=== PATIENT | male | born 1980 | race Caucasian/White ===

== ENCOUNTER 2021-12-06 10:50 | Emergency (ER) | payer BC ==
[~2021-12-06] VITALS: Ht 175.3 cm; Wt 102.7 kg
[2021-12-06 11:05] VITALS: BP 182/118
[2021-12-06] MEDS ORDERED: DIPHTH,PERTUSS(ACELL),TET TOX 0.5 ML DISP.SYRIN. VAX IM ONE (11:45)
[2021-12-06] MEDS ORDERED: LIDOCAINE 1%/EPI 1:100,000 20 ML VIAL. INJ ONE (11:45)
[2021-12-06] MEDS ORDERED: CEPHALEXIN 250 MG CAPSULE. PO SCH (12:00)
--- NOTE | 2021-12-06 12:33 | RAD ---
EXAM: XR HAND_LEFT 2 VIEWS 12/06/2021 11:44 AM CLINICAL INDICATION: Laceration on hand COMPARISON: None TECHNIQUE: PA and lateral views of the left hand FINDINGS: There is no acute fracture. Alignment is normal. Joint spaces are maintained. No focal sof t tissue abnormality or radiopaque foreign body. IMPRESSION: No acute osseous abnormality or radiopaque foreign body. Electronically signed by: Kacey Kent MD (12/06/2021 12:31 PM) [id number]
--- NOTE | 2021-12-06 12:39 | PHYS DOC ---
Past Medical History Past Surgical History: Tonsillectomy Additional Past Surgical Histo: LEFT KNEE AND ANKLE General Adult EDM: Chief Complaint: LACERATION/AVULSION HPI: HPI: Patient is a 41 year old male presents to the ER with laceration of his distal left index finger. Patient states that he was attempting to install a sprinkler system and cutting pipe. Patient states that the pipe slipped and cut his hand. Does not know when his last tetanus was. Review of Systems: Review of Systems: Constitutional: Denies fever or chills. [] Eyes: Denies change in visual acuity. [] HENT: Denies nasal congestion or sore throat. [] Respiratory: Denies cough or shortness of breath. [] Cardiovascular: Denies chest pain or edema. [] GI: Denies abdominal pain, nausea, vomiting, bloody stools or diarrhea. [] : Denies dysuria. [] Musculoskeletal: Denies back pain or joint pain. [] Integument: Finger laceration denies rash. [] Neurologic: Denies headache, focal weakness or sensory changes. [] Endocrine: Denies polyuria or polydipsia. [] Lymphatic: Denies swollen glands. [] Psychiatric: Denies depression or anxiety. [] Heart Score: C/O Chest Pain: No Risk Factors: Risk Factors: DM, Current or recent (<one month) smoker, HTN, HLP, family history of CAD, obesity. Risk Scores: Score 0 - 3: 2.5% MACE over next 6 weeks - Discharge Home Score 4 - 6: 20.3% MACE over next 6 weeks - Admit for Clinical Observation Score 7 - 10: 72.7% MACE over next 6 weeks - Early Invasive Strategies Current Medications: Current Medications Medications (Trade) Dose Ordered Sig/Addie Start Time Stop Time Status Last Admin Dose Admin Cephalexin HCl (Keflex) 500 mg BID 12/06/21 12:00 12/06/21 11:56 500 MG Diphtheria/ Tetanus/Acell Pertussis (Boostrix) 0.5 ml ONCE ONCE 12/06/21 11:45 12/06/21 11:46 DC 12/06/21 11:58 0.5 ML Lidocaine/ Epinephrine (LIDOCAINE 1%-EPI 1:100,000 Multi-Dose) 20 ml 1X ONCE 12/06/21 11:45 12/06/21 11:46 DC 12/06/21 11:45 20 ML Allergies: Allergies: Allergies Coded Allergies Type Severity Reaction Last Updated Verified sulfamethoxazole Allergy Intermediate 12/06/21 Yes trimethoprim Allergy Intermediate 12/06/21 Yes Physical Exam: PE: Constitutional: Well developed, well nourished, no acute distress, non-toxic appearance. [] HENT: Normocephalic, atraumatic, bilateral external ears normal, oropharynx moist, no oral exudates, nose normal. [] Eyes: PERRLA, EOMI, conjunctiva normal, no discharge. [] Neck: Normal range of motion, no tenderness, supple, no stridor. [] Cardiovascular:Heart rate regular rhythm, no murmur [] Lungs & Thorax: Bilateral breath sounds clear to auscultation [] Abdomen: Bowel sounds normal, soft, no tenderness, no masses, no pulsatile masses. [] Skin: Warm, dry, no erythema, no rash. [] Back: No tenderness, no CVA tenderness. [] Extremities: Patient has a small laceration on the dorsum of the left index finger and the distal tip. Nail has been involved but no nailbed involvement. Range of motion is intact. No bone or tendon involvement. No tenderness, no cyanosis, no clubbing, ROM intact, no edema. [] Neurologic: Alert and oriented X 3, normal motor function, normal sensory function, no focal deficits noted. [] Psychologic: Affect normal, judgement normal, mood normal. [] Current Patient Data: Vital Signs: Vital Signs Date Time Temp Pulse Resp B/P (MAP) Pulse Ox O2 Delivery O2 Flow Rate FiO2 12/06/21 11:05 98.5 80 18 182/118 (139) 96 Room Air 98.5 EKG: EKG: [] Radiology/Procedures: Radiology/Procedures: [] EXAM: XR HAND_LEFT 2 VIEWS 12/06/2021 11:44 AM CLINICAL INDICATION: Laceration on hand COMPARISON: None TECHNIQUE: PA and lateral views of the left hand FINDINGS: There is no acute fracture. Alignment is normal. Joint spaces are maintained. No focal soft tissue abnormality or radiopaque foreign body. IMPRESSION: No acute osseous abnormality or radiopaque foreign body. Course & Med Decision Making: Course & Med Decision Making Pertinent Labs and Imaging studies reviewed. (See chart for details) [] Patient's laceration was cleaned and dressed. A pressure dressing was placed. Patient started antibiotics tetanus has been updated. Return precautions were discussed Millie Disclaimer: Dragflorin Disclaimer: This electronic medical record was generated, in whole or in part, using a voice recognition dictation system. Departure Departure Referrals: NO PCP (PCP) JOY VALLES DO Dec 06, 2021 12:38
[2021-12-06] MEDS ORDERED: TRAM50TA PO (12:48)
[2021-12-06] MEDS ORDERED: CEPH250C PO (12:48)
== END 2021-12-06 13:03 | disposition home or self-care (01) ==
LOC: ER 10:50
DX: S61.211A Laceration without foreign body of left index finger without damage to nail, initial encounter (principal); Z88.2 Allergy status to sulfonamides; Z88.1 Allergy status to other antibiotic agents; W26.8XXA Contact with other sharp object(s), not elsewhere classified, initial encounter; Y93.89 Activity, other specified; Y92.89 Other specified places as the place of occurrence of the external cause; Y99.8 Other external cause status
CPT/HCPCS: 73120; 90471; 90715; 96372; 99284; J3490